=== PATIENT | female | born 1945 | race Caucasian/White ===

== ENCOUNTER → 2017-09-23 | Outpatient (CLI) | payer OTHER ==
[~2017-09-23] MED LIST: ARICEPT10 M1 PO; ASPIR 8181 MG PO; ATIVAN1 MG PO; CALCIUM 500 +1 EAC5 PO; CLONAZEPAM 0.50.5 M1 PO; CLONAZEPAM0.125 MG; COCONUT OIL1000 MG PO; CYMBALTA20 MG PO; DOXEPIN 10 MG C10 MG PO; DULOXETINE HCL20 MG PO; IBUPROFEN 800800 M1 PO; KEFLEX500 MG PO; MAG GLYCINATE100 MG PO; MELOXICAM15 MG PO; MULTI FOR HER400 MCG PO; MYRBETRIQ50 MG PO; NORCO 5-325 TA1 EACH PO; Q SORB CO Q PO; REQUIP0.5 MG PO; TIZANIDINE HCL4 M1 PO; TYLENOL325 MG PO; UNICOMPLEX M TA1 TA1 PO; VITAMIN B-12500 MC5 PO; VITAMIN B-2100 MG PO; VITAMIN D3400 UNIT PO; ZOFRAN ODT4 MG PO
== END ==
LOC: RAD 00:36
DX: Z12.31 Encounter for screening mammogram for malignant neoplasm of breast (principal)

== ENCOUNTER → 2018-09-26 | Outpatient (CLI) | payer OTHER | LOC: BC 02:26 | DX: Z12.31 Encounter for screening mammogram for malignant neoplasm of breast (principal) ==

== ENCOUNTER → 2019-10-08 | Outpatient (CLI) | payer OTHER | LOC: RAD 09:08 | DX: Z12.31 Encounter for screening mammogram for malignant neoplasm of breast (principal) ==

== ENCOUNTER → 2020-07-07 | Outpatient (CLI) | payer OTHER ==
[~2020-07-07] MED LIST changes: +ASA81BEC PO; +CALCIUM PO; +CO Q-10200 MG PO; +CYCLOBENZAPRINE5 MG PO; +DRIZALMA SPRINK40 MG PO; +MAGNESIUM GLYCINATE PO; +MELATONIN10 M3 PO; +METHYLFOLATE PO; +MULTI VITAMIN1 EACH PO; +NEURONTIN 300M300 M2 PO; +REMERON15 M2 PO; +ROPINIROLE HCL2 MG PO; +TYLENOL EXTRA500 MG PO; +VITAMIN D3 PO
== END ==
LOC: NUC 10:34
PROVIDERS: ATTEND Orthopaedic Surgery Foot and Ankle Surgery
DX: M85.80 Other specified disorders of bone density and structure, unspecified site (principal); Z78.0 Asymptomatic menopausal state

== ENCOUNTER → 2020-07-09 | Outpatient (CLI) | payer OTHER | LOC: LAB 10:30 | PROVIDERS: ATTEND Student in an Organized Health Care Education/Training Program | DX: Z01.812 Encounter for preprocedural laboratory examination (principal); Z20.828 Contact with and (suspected) exposure to other viral communicable diseases ==

== ENCOUNTER 2020-07-14 10:33 | Observation (INO) | payer OTHER ==
[2020-07-07 11:47] LABS: HEMATOCRIT 36.6 % (37.0-47.0); HEMOGLOBIN 12.2 gm/dL (12.0-15.0); MCH 32.6 pg (26.0-34.0); MCHC 33.3 g/dL (28.0-37.0); MCV 97.9 fL (80.0-100.0); RBC 3.74 mil/uL (4.20-5.00); RDW 15.6 % (10.5-14.5)
[2020-07-07 11:54] LABS: ALBUMIN 3.8 g/dL (3.4-5.0); CREATININE 0.9 mg/dL (0.6-1.0); POTASSIUM 4.5 mmol/L (3.5-5.1)
[2020-07-07 11:57] LABS: PROTIME 9.8 Seconds (9.3-11.4)
[2020-07-07 12:30] LABS: URINE BILIRUBIN NEGATIVE (Negative); URINE BLOOD NEGATIVE (Negative); URINE CLARITY CLEAR; URINE COLOR YELLOW; URINE GLUCOSE-RANDOM* NEGATIVE (Negative); URINE KETONES NEGATIVE (Negative); URINE LEUKOCYTES-REFLEX NEGATIVE (Negative); URINE NITRITE-REFLEX NEGATIVE (Negative); URINE PROTEIN (DIPSTICK) NEGATIVE (Negative); URINE UROBILINOGEN 0.2 E.U./dl (0.2-1.0)
[~2020-07-14] VITALS: Ht 157.5 cm; Wt 71.2 kg
--- NOTE | ~2020-07-14 | O ---
[facility] [place] [address] OPERATIVE REPORT Name: MARTIN OJEDA Room #: 434-P ADM IN M.R.#: [id number] Admission: 07/14/20 Attend Phys: Gumaro Carrero MD Discharge: Date of : 49 Report #: [id number] THIS REPORT FOR: cc: ANIL WILCOX Physician not on staff Gumaro Carrero MD ~ CC: ANIL WILCOX Physician staff Gumaro Carrero DATE OF SERVICE: 07/14/2020 PREOPERATIVE DIAGNOSIS: Right knee osteoarthritis. POSTOPERATIVE DIAGNOSIS: Right knee osteoarthritis. PROCEDURE: Right total knee arthroplasty using Navio robotic assistance. SURGEON: Gumaro Carrero MD. EARTH MOVING MACHINE OPERATOR: Judy Boyd PA-C. INDICATIONS FOR EARTH MOVING MACHINE OPERATOR: Throughout the case, extensive retraction and manipulation of the knee was required. This was afforded to me by my anesthesiologist assistant certified. ANESTHESIA: LMA with an adductor canal block. IMPLANTS: [employer] size 3 Journey II BCS cobalt chrome femur, size 2 tibia, size 11 polyethylene and size 29 patella. TOURNIQUET TIME: 49 minutes. ESTIMATED BLOOD LOSS: 25 mL. COMPLICATIONS: None. SPECIMENS: None. CONDITION UPON LEAVING THE OPERATING ROOM: Stable. INDICATIONS FOR PROCEDURE: The patient is a 75-year-old female with severe right knee osteoarthritis. She has failed conservative measures for this and after discussion with her, she elected for right total knee arthroplasty. DESCRIPTION OF PROCEDURE: Risks, benefits, alternatives, complications were discussed in detail with the patient including but not limited to risk of [facility] [address] [place] [address] OPERATIVE REPORT Name: MARTIN OJEDA Room #: 434-P [facility] IN M.R.#: [id number] Admission: 07/14/20 Attend Phys: Gumaro Carrero MD Discharge: Date of : 49 Report #: [id number] anesthesia, risk of damage to nerves, arteries, blood vessels, risk for infection, bleeding, risk for continued knee pain, need for reoperation. Informed consent was obtained from the patient. The right knee was appropriately marked in the preoperative holding area. IV clindamycin was given for preoperative antibiotics. She was brought to the operating room and placed in supine position on operating room table. LMA anesthesia was induced without complication. Tourniquet was placed on the right thigh. Right lower extremity was prepped and draped in normal sterile fashion. Timeout was performed properly identifying the patient and procedure as well as the instrumentation and implants. All in the operating room were in agreement. Right lower extremity was exsanguinated, tourniquet was inflated. Tourniquet time was 49 minutes. Standard midline approach to the knee was made with 10 blade through the skin. Dissection was taken down sharply to the fascia. Deep flaps were developed medially and laterally. Fresh 10 blade was used to make a medial parapatellar arthrotomy and the knee was inspected. There was severe lateral compartment osteoarthritis with [id number] medial and patellofemoral involvement. ACL and PCL were removed sharply. Reference pins were placed in the femur and the tibia. The knee was then digitally mapped using the Roadmap robotic system. Intraoperative plan was made and we sized the size 3 femur with a size 2 tibia and a 10 spacer. After acceptance of the intraoperative plan, the distal femoral cut was made with a Navio bur. Distal femoral cutting block was pinned in place and the chamfer cuts were made. Attention was turned to the tibia. Remainder of the menisci removed with Bovie cautery. Tibial resection guide was pinned in place using the Navio for placement and tibial resection was made. After this, flexion and extension gaps were checked and found to have good balance in flexion and extension both medially and laterally. The tibia was sized, found to be a size 2. A size 2 tibial trial was placed, pinned and punched. A size 3 femoral trial was placed and box cut was made. This was then trialed with a size 10 and then a size 11 polyethylene. Size 11 polyethylene demonstrated 1-2 millimeter of laxity medially and laterally throughout range of motion. After this, 9 mm was resected from the posterior surface of the patella and a size 29 patellar trial button was placed. Knee was taken through range of motion, found to be stable, found to have good patellar tracking. Trial components were removed. Bony ends were thoroughly irrigated with normal saline. A final size 2 tibia, size 3 Journey II BCS cobalt chrome femur and a size 29 patella were cemented in place using standard cementation techniques. While the cement cured, a periarticular injection consisting of morphine, ropivacaine, epinephrine and Toradol was placed around the knee joint capsule. After the cement cured, the tourniquet was deflated. Hemostasis was obtained with Bovie cautery. Final size 11 polyethylene was placed. A gram of vancomycin was placed deep in the joint. The fascia was closed with 0 Vicryl, skin was closed with 2-0 Vicryl, 3-0 Monocryl. Dermabond and a RAMA dressing [address] [address] OPERATIVE REPORT Name: MARTIN OJEDA Room #: 434-P [facility] IN .R.#: [id number] Admission: 07/14/20 Attend Phys: Gumaro Carrero MD Discharge: Date of : 49 Report #: [id number] was applied. The patient tolerated this procedure well and went to recovery room under care of anesthesia postoperatively. By: [id number] Gumaro Carrero MD /nt
[~2020-07-14 10:33] MED LIST changes: -NEURONTIN 300M300 M2 PO
[2020-07-14 11:26] VITALS: BP 150/80
[2020-07-14 17:00] VITALS: BP 143/61
--- NOTE | 2020-07-14 17:37 | NUR ---
PATIENT ADMITTED FROM OR WITH RIGHT NAVIO TOTAL KNEE REPLACEMENT, RAMA DRESSING, SCD'S, THIGH HIGH DREW HOSE, POLAR PACK. PATIENT C/O PAIN 01/21, BUT REFUSED PAIN MEDS AT THIS TIME. PATIENT HAS RIGHT WRIST IV IN PLACE, D51/2 NS AT 100CCHR STARTED. VSS. PATIENT ASSISTED UP TO THE BSC, URINATED W/O DIFFICULTY. ADMISSION COMPLETED, REPORT WILL BE GIVEN TO LORY/MARTIN.
[2020-07-14 19:26] VITALS: BP 136/83
--- NOTE | 2020-07-15 04:09 | NUR ---
ASSUMED PT CARE AT 1920. PT IS A&O X4. VITAL SIGNS STABLE. D5 1/2 RUNNING AT 100 MLS/HR. PT TOOK SCHEDULED MEDS. PT DENIES PAIN BUT SAYS THERE IS A DISCOMFORT. PT IS A STANDBY TO THE CAMODE. PT IS RESTING IN ROOM, WHEN I CHECK ON HER SHE SAYS THAT SHE IS COMFORTABLE BUT DOES NOT SLEEP ALL NIGHT. WILL CONTINUE TO MONITOR.
[2020-07-15 05:13] VITALS: BP 145/74
[2020-07-15 05:25] LABS: HEMATOCRIT 31.4 % (37.0-47.0); HEMOGLOBIN 10.7 gm/dL (12.0-15.0); MCH 33.8 pg (26.0-34.0); MCHC 34.2 g/dL (28.0-37.0); MCV 98.8 fL (80.0-100.0); RBC 3.18 mil/uL (4.20-5.00); RDW 15.1 % (10.5-14.5); WBC 9.8 thou/uL (4.0-11.0)
[2020-07-15 07:14] VITALS: BP 127/74
--- NOTE | 2020-07-15 08:34 | NUR ---
ASSESSMENT: CM REVIEWED CHART AND SPOKE WITH PATIENT. PT IS ALERT AND ORIENTED X4. PT IS HERE S/P R TKA. PT REPORTS LIVING IN A HOUSE WITH HER . PT STATES ONE STEP TO ENTER. PT HAS ABOUT 14 STEPS WITH HANDRAILS TO HER BEDROOM. PT REPORTS SHE NORMALLY AMBULATES INDEPENDENTLY BUT DOES HAVE A WALKER AT HOME. PT REPORTS BEING INDEPENDENT WITH ADLS AND ALSO HAS A SHOWER CHAIR. PT REPORTS HAVING [facility] IN THE PAST AFTER A SURGERY BUT DOES NOT CURRENTLY HAVE THEM. PT REPORTS SHE HAS DISCUSSED DOING OUTPATIENT THERAPY AT [facility]. PT/OT IS TO SEE PATIENT. CM WILL CONTINUE TO FOLLOW TO ASSIST NEEDED.
[2020-07-15] MEDS ORDERED: ASA81BEC PO (10:35)
[2020-07-15] MEDS ORDERED: NEURONTIN 300M300 M2 PO (10:35)
[2020-07-15 14:57] VITALS: BP 127/74
--- NOTE | 2020-07-15 15:41 | NUR ---
Assumed care of pt. at 0700. Pt. was calm and cooperative. Pt. was able to surpass PT standards on the first exercises as well as the stair test in the afternoon. Teaching on the orthopedic dressing and care were given and understood. Packet sent home with pt. Patient left at 1540 with belongings and husnband in wheel chair.
== END 2020-07-15 15:40 | disposition home or self-care (01) ==
LOC: PRE 10:33 → TBA 10:35 → 4S 10:35 → PRE 13:27 → 4S 15:53
PROVIDERS: ADMIT Orthopaedic Surgery; ATTEND Orthopaedic Surgery
DX: M17.11 Unilateral primary osteoarthritis, right knee (principal); F41.9 Anxiety disorder, unspecified; M81.0 Age-related osteoporosis without current pathological fracture; G43.909 Migraine, unspecified, not intractable, without status migrainosus; N39.0 Urinary tract infection, site not specified; Z79.899 Other long term (current) drug therapy
CPT/HCPCS: 27447; S2900; 10102; 50010; 50101; 50415; 50954; 51130; 51225; 51320; 53000; 53078; 54118; 56527; 56528; 57095; 57103; 57110; 57127; 57180; 58239; 62110; 62900; 64039; 70005

== ENCOUNTER 2020-09-14 21:41 | Emergency (ER) | payer OTHER ==
[~2020-09-14] VITALS: Ht 157.5 cm; Wt 70.3 kg
[~2020-09-14 21:41] MED LIST changes: +NEURONTIN 300M300 M2 PO
[2020-09-14] MEDS ORDERED: MORPHINE SULFAT15 MG PO (21:51)
[2020-09-14] MEDS ORDERED: HYDROCODON-ACE1 EAC7 PO (21:51)
[2020-09-14] MEDS ORDERED: ROPINIROLE HCL0.5 MG PO (21:52)
[2020-09-14 22:45] VITALS: BP 118/74
== END 2020-09-15 00:21 | disposition home or self-care (01) ==
LOC: ER 21:41
DX: S00.03XA Contusion of scalp, initial encounter (principal); Z90.710 Acquired absence of both cervix and uterus; Z79.82 Long term (current) use of aspirin; Z79.899 Other long term (current) drug therapy; Z88.0 Allergy status to penicillin; Z88.1 Allergy status to other antibiotic agents; Z88.8 Allergy status to other drugs, medicaments and biological substances; W10.9XXA Fall (on) (from) unspecified stairs and steps, initial encounter; Y93.89 Activity, other specified; Y92.89 Other specified places as the place of occurrence of the external cause; Y99.8 Other external cause status